=== PATIENT | male | born 1985 | race Caucasian/White ===

== ENCOUNTER 2022-09-23 14:01 | Outpatient (OUT) | payer OTHER, SELFPAY | END 2022-09-23 14:02 | disposition home or self-care (01) | LOC: WC 14:01 | PROVIDERS: PCP Internal Medicine; Visit Provider Podiatrist Foot & Ankle Surgery | DX: S81.802A Unspecified open wound, left lower leg, initial encounter (principal) | CPT/HCPCS: G0463 ==

== ENCOUNTER 2022-10-17 10:17 | Outpatient (OUT) | payer OTHER, SELFPAY | END 2022-10-17 10:18 | disposition home or self-care (01) | LOC: WC 10:18 | PROVIDERS: PCP Internal Medicine; Visit Provider Podiatrist Foot & Ankle Surgery | DX: S81.802A Unspecified open wound, left lower leg, initial encounter (principal) | CPT/HCPCS: G0463 ==

== ENCOUNTER 2022-11-05 10:15 | Outpatient (OUT) | payer OTHER, SELFPAY | END 2022-11-05 10:16 | disposition home or self-care (01) | LOC: WC 10:15 | PROVIDERS: PCP Internal Medicine; Visit Provider Podiatrist Foot & Ankle Surgery | DX: S81.802A Unspecified open wound, left lower leg, initial encounter (principal) | CPT/HCPCS: G0463 ==

== ENCOUNTER 2022-11-28 11:34 | Outpatient (OUT) | payer OTHER, SELFPAY | END 2022-11-28 11:35 | disposition home or self-care (01) | LOC: WC 11:34 | PROVIDERS: PCP Internal Medicine; Visit Provider Podiatrist Foot & Ankle Surgery | DX: S81.802A Unspecified open wound, left lower leg, initial encounter (principal) | CPT/HCPCS: G0463 ==

== ENCOUNTER 2022-12-19 09:07 | Outpatient (OUT) | payer OTHER, SELFPAY | END 2022-12-19 09:08 | disposition home or self-care (01) | LOC: WC 09:07 | PROVIDERS: PCP Internal Medicine; Visit Provider Podiatrist Foot & Ankle Surgery | DX: S81.802A Unspecified open wound, left lower leg, initial encounter (principal) | CPT/HCPCS: G0463 ==

== ENCOUNTER 2023-01-06 09:36 | Outpatient (OUT) | payer OTHER, SELFPAY | END 2023-01-06 09:37 | disposition home or self-care (01) | LOC: WC 09:37 | PROVIDERS: PCP Internal Medicine; Visit Provider Physician Assistant | DX: S81.802A Unspecified open wound, left lower leg, initial encounter (principal) | CPT/HCPCS: G0463 ==